=== PATIENT | male | born 1960 | race African-American/Black ===

== ENCOUNTER 2020-07-12 17:45 | Emergency (ER) | payer MEDICARE, MEDICAID ==
[~2020-07-12] VITALS: Ht 177.8 cm; Wt 81.8 kg
[2020-07-12 18:17] VITALS: BP 143/72
--- NOTE | 2020-07-12 18:55 | ED.ADGEN ---
Past Medical History Past Medical History: Cancer, COPD, Diabetes-Type II, Stroke Additional Past Medical Histor: LUNG CA Past Surgical History: Knee Replacement Additional Past Surgical Histo: STENTS IN LEG Smoking Status: Former Smoker Alcohol Use: None General Adult EDM: Chief Complaint: FOREIGN BODY HPI: HPI: Patient is a 60 year old AA male, accompanied by his , who presents emergency department with complaints of steak being stuck in his throat. He denies any difficulty swallowing his own secretions but reports he is unable to drink with a steak stuck in his throat, he denies any nausea, or vomiting. He currently denies any pain he just reports a sensation of something being stuck in his throat. He denies any difficulty speaking or shortness of breath. Review of Systems: Review of Systems: Complete ROS is negative unless otherwise noted in HPI. Allergies: Allergies: Allergies Coded Allergies Type Severity Reaction Last Updated Verified latex Allergy Severe HIVES 07/12/20 Yes Physical Exam: PE: See Above Constitutional: Well developed, well nourished, no acute distress, non-toxic appearance. [] HENT: Normocephalic, atraumatic, bilateral external ears normal, oropharynx moist, no oral exudates, nose normal. [] Eyes: PERRLA, EOMI, conjunctiva normal, no discharge. [] Neck: Normal range of motion, no tenderness, supple, no stridor. [] Cardiovascular:Heart rate regular rhythm, no murmur [] Lungs & Thorax: Respirations even and unlabored, no retractions, no respiratory distress, lungs CTA [] Abdomen: soft, no tenderness Skin: Warm, dry, no erythema, no rash. [] Extremities: No cyanosis, ROM intact, no edema. [] Neurologic: Alert and oriented X 3, no focal deficits noted. [] Psychologic: Affect normal, judgement normal, mood normal. [] Current Patient Data: Vital Signs: Vital Signs Date Time Temp Pulse Resp B/P (MAP) Pulse Ox O2 Delivery O2 Flow Rate FiO2 07/12/20 18:17 98.2 102 20 143/72 (95) 98 Room Air 98.2 EKG: EKG: [] Heart Score: Risk Factors: Risk Factors: DM, Current or recent (<one month) smoker, HTN, HLP, family history of CAD, obesity. Risk Scores: Score 0 - 3: 2.5% MACE over next 6 weeks - Discharge Home Score 4 - 6: 20.3% MACE over next 6 weeks - Admit for Clinical Observation Score 7 - 10: 72.7% MACE over next 6 weeks - Early Invasive Strategies Radiology/Procedures: Radiology/Procedures: Easy gas was administered by the nurse and the patient coughed up the steak that was stuck in his throat. He reported feeling better after drinking this medication. He denied any discomfort in his throat or abdomen. Patient was able to drink a glass of water without any difficulty. [] Course & Med Decision Making: Course & Med Decision Making Pertinent Labs and Imaging studies reviewed. (See chart for details) [] Dragon Disclaimer: Dragon Disclaimer: This electronic medical record was generated, in whole or in part, using a voice recognition dictation system. Departure Departure Impression: Primary Impression: Foreign body in esophagus Disposition: 01 DC HOME SELF CARE/HOMELESS Condition: STABLE Referrals: CLINTON MAC MD Patient Instructions: Diet - Soft, Swallowed Foreign Body, Adult, [id number] Additional Instructions: Follow up with Dr. Mac for further evaluation. Follow soft food diet until follow up. Return to the ER if symptoms worsen. Problem Qualifiers Primary Impression: Foreign body in esophagus Encounter type: initial encounter Qualified Codes: T18.108A - Unspecified foreign body in esophagus causing other injury, initial encounter [employer] Jul 12, 2020 18:55
== END 2020-07-12 19:03 | disposition home or self-care (01) ==
LOC: ER 17:45
DX: T18.108A Unspecified foreign body in esophagus causing other injury, initial encounter (principal); E11.9 Type 2 diabetes mellitus without complications; J44.9 Chronic obstructive pulmonary disease, unspecified; Z87.891 Personal history of nicotine dependence; Z86.73 Personal history of transient ischemic attack (TIA), and cerebral infarction without residual deficits; Z95.5 Presence of coronary angioplasty implant and graft; Z91.040 Latex allergy status; X58.XXXA Exposure to other specified factors, initial encounter; Y93.89 Activity, other specified; Y92.89 Other specified places as the place of occurrence of the external cause; Y99.8 Other external cause status
CPT/HCPCS: 99282